=== PATIENT | female | born 1945 | race Caucasian/White ===

== ENCOUNTER 2023-10-17 11:11 | Outpatient (RCR) | payer MEDICARE, BC, SELFPAY ==
[2023-10-17 10:54] LABS: % Basophils 0.4 % (0-2); % Eosinophils 0.3 % (0-6); % Immature Granulocytes 1.5 % (0-0.5); % Lymphocytes 5.1 % (20.5-51.1); % Monocytes 6.5 % (1.7-9.3); % Neutrophils 86.2 % (42.2-75.2); Absolute Basophils 0.1 10^3/uL (0-0.2); Absolute Eosinophils 0.1 10^3/uL (0-0.7); Absolute Immature Granulocytes 0.2 10^3/uL (0-0.05); Absolute Lymphocytes 0.7 10^3/uL (1.2-3.4); Absolute Monocytes 0.9 10^3/uL (0.1-0.6); Absolute Neutrophils 12.4 10^3/uL (1.4-6.5); Hematocrit 27.4 % (37.0-47.0); Hemoglobin 9.2 g/dL (12.0-16.0); Mean Corp Hgb Conc. 33.6 g/dL (33.0-37.0); Mean Corpuscular Hgb 37.1 pg (27.0-31.0); Mean Corpuscular Volume 110.5 fL (81.0-99.0); Mean Platelet Volume 11.2 fL (7.4-10.4); Nucleated Red Blood Cells % 0 %; Platelet Count 53 10^3/uL (130-400); Red Blood Cell Count 2.48 10^6/uL (4.20-5.40); Red Cell Dist. Width 22.2 % (11.5-14.5); White Blood Cell Count 14.4 10^3/uL (4.8-10.8)
[2023-10-17 11:17] LABS: ALT (SGPT) 34 U/L (0-35); AST (SGOT) 31 U/L (14-36); Alkaline Phosphatase 82 U/L (38-126); Blood Urea Nitrogen 10 mg/dl (7-17); Calcium 8.5 mg/dl (8.4-10.2); Carbon Dioxide 27 mmol/L (22-30); Chloride 101 mmol/L (98-107); Glucose 92 mg/dl (70-99); Iron 158 ug/dl (37-170); Sodium 133 mmol/L (135-145); Total Bilirubin 0.8 mg/dl (0.2-1.3); Total Protein 5.8 g/dl (6.3-8.2); eGFR > 60.00
[2023-10-17 11:26] LABS: Percent Saturation 57 % (20-50); Total Iron Binding Capacity 277 ug/dl (265-497)
== END 2023-10-30 23:59 | disposition home or self-care (01) ==
LOC: OID 11:11
PROVIDERS: ATTENDING PHYSICIAN Internal Medicine Hematology & Oncology; FAMILY PHYSICIAN Family Medicine
DX: D63.0 Anemia in neoplastic disease (principal); C34.91 Malignant neoplasm of unspecified part of right bronchus or lung; C79.51 Secondary malignant neoplasm of bone; R91.1 Solitary pulmonary nodule; C50.511 Malignant neoplasm of lower-outer quadrant of right female breast; R16.1 Splenomegaly, not elsewhere classified; E78.00 Pure hypercholesterolemia, unspecified
CPT/HCPCS: 80053; 82728; 83540; 83550; 85025

== ENCOUNTER 2024-02-25 14:15 | Outpatient (RCR) | payer MEDICARE, BC, SELFPAY | END 2024-02-25 23:59 | disposition home or self-care (01) | LOC: RPT 14:15 | PROVIDERS: ATTENDING PHYSICIAN Internal Medicine Hematology & Oncology; FAMILY PHYSICIAN Family Medicine | DX: M54.50 Low back pain, unspecified (principal); C34.91 Malignant neoplasm of unspecified part of right bronchus or lung; C79.51 Secondary malignant neoplasm of bone; R93.7 Abnormal findings on diagnostic imaging of other parts of musculoskeletal system; C50.911 Malignant neoplasm of unspecified site of right female breast; R53.0 Neoplastic (malignant) related fatigue; R26.81 Unsteadiness on feet; Z73.6 Limitation of activities due to disability | CPT/HCPCS: 97110; 97112; 97162; 97530 ==

== ENCOUNTER 2024-03-29 09:53 | Outpatient (RCR) | payer MEDICARE, BC, SELFPAY | END 2024-03-29 23:59 | disposition home or self-care (01) | LOC: RPT 09:53 | PROVIDERS: ATTENDING PHYSICIAN Internal Medicine Hematology & Oncology; FAMILY PHYSICIAN Family Medicine | DX: M54.50 Low back pain, unspecified (principal); C34.91 Malignant neoplasm of unspecified part of right bronchus or lung; C79.51 Secondary malignant neoplasm of bone; R93.7 Abnormal findings on diagnostic imaging of other parts of musculoskeletal system; C50.911 Malignant neoplasm of unspecified site of right female breast; R53.0 Neoplastic (malignant) related fatigue; R26.81 Unsteadiness on feet; Z73.6 Limitation of activities due to disability | CPT/HCPCS: 97110; 97112; 97530 ==

== ENCOUNTER → 2024-04-26 08:59 | Outpatient (REF) | payer MEDICARE, BC, SELFPAY | LOC: RAD 08:59 | PROVIDERS: ATTENDING PHYSICIAN Internal Medicine Critical Care Medicine; FAMILY PHYSICIAN Family Medicine | DX: C34.90 Malignant neoplasm of unspecified part of unspecified bronchus or lung (principal); R93.89 Abnormal findings on diagnostic imaging of other specified body structures | CPT/HCPCS: 71250 ==

== ENCOUNTER 2024-04-30 09:57 | Outpatient (RCR) | payer MEDICARE, BC, SELFPAY | END 2024-04-30 23:59 | disposition home or self-care (01) | LOC: RPT 09:57 | PROVIDERS: ATTENDING PHYSICIAN Internal Medicine Hematology & Oncology; FAMILY PHYSICIAN Family Medicine | DX: M54.50 Low back pain, unspecified (principal); C34.91 Malignant neoplasm of unspecified part of right bronchus or lung; C79.51 Secondary malignant neoplasm of bone; R93.7 Abnormal findings on diagnostic imaging of other parts of musculoskeletal system; C50.911 Malignant neoplasm of unspecified site of right female breast; R53.0 Neoplastic (malignant) related fatigue; R26.81 Unsteadiness on feet; Z73.6 Limitation of activities due to disability | CPT/HCPCS: 97110; 97112; 97530 ==

== ENCOUNTER 2024-05-24 06:38 | Day surgery (SDC) | payer MEDICARE, BC, SELFPAY ==
[2024-05-14 12:22] VITALS: BMI 27.2
--- NOTE | 2024-05-20 10:50 | PTCARENOTE ---
Patients 05/14 [id number]- emailed to Yolanda Villanueva @ Dr. Martínez ackerman
[2024-05-24] VITALS (9 sets, daily range): BP systolic 113–158; BP diastolic 41–80; BMI 25.2
== END 2024-05-24 15:20 | disposition home or self-care (01) ==
LOC: SDS 06:38
PROVIDERS: ATTENDING PHYSICIAN Internal Medicine Critical Care Medicine
DX: C34.11 Malignant neoplasm of upper lobe, right bronchus or lung (principal); C77.1 Secondary and unspecified malignant neoplasm of intrathoracic lymph nodes; J84.10 Pulmonary fibrosis, unspecified; I71.20 Thoracic aortic aneurysm, without rupture, unspecified; Z87.891 Personal history of nicotine dependence
CPT/HCPCS: 31629; 31628; 31624; 31623; 31627; 31654; 88173; 88305; 71045; 76000; 87015; 87070; 87102; 87116; 87205; 88112; 88333; 88334; 88341; 88342; 94640; C1887

== ENCOUNTER → 2024-06-02 15:07 | Outpatient (REF) | payer MEDICARE, BC, SELFPAY | LOC: RAD 15:07 | PROVIDERS: ATTENDING PHYSICIAN Internal Medicine Hematology & Oncology; FAMILY PHYSICIAN Family Medicine | DX: C50.511 Malignant neoplasm of lower-outer quadrant of right female breast (principal); R93.7 Abnormal findings on diagnostic imaging of other parts of musculoskeletal system; R91.1 Solitary pulmonary nodule; C79.51 Secondary malignant neoplasm of bone; C34.91 Malignant neoplasm of unspecified part of right bronchus or lung; D63.0 Anemia in neoplastic disease; D64.9 Anemia, unspecified; E80.7 Disorder of bilirubin metabolism, unspecified; R16.1 Splenomegaly, not elsewhere classified; D64.81 Anemia due to antineoplastic chemotherapy; D69.6 Thrombocytopenia, unspecified | CPT/HCPCS: 71101; 73502 ==

== ENCOUNTER 2024-06-07 10:05 | Outpatient (RCR) | payer MEDICARE, BC, SELFPAY | END 2024-06-07 23:59 | disposition home or self-care (01) | LOC: RPT 10:05 | PROVIDERS: ATTENDING PHYSICIAN Internal Medicine Hematology & Oncology; FAMILY PHYSICIAN Family Medicine | DX: M54.50 Low back pain, unspecified (principal); C34.91 Malignant neoplasm of unspecified part of right bronchus or lung; C79.51 Secondary malignant neoplasm of bone; C50.911 Malignant neoplasm of unspecified site of right female breast; R93.7 Abnormal findings on diagnostic imaging of other parts of musculoskeletal system; R53.0 Neoplastic (malignant) related fatigue; R26.81 Unsteadiness on feet; Z73.6 Limitation of activities due to disability; M62.81 Muscle weakness (generalized); R26.2 Difficulty in walking, not elsewhere classified | CPT/HCPCS: 97112; 97116; 97530 ==

== ENCOUNTER → 2024-07-22 13:30 | Outpatient (REF) | payer MEDICARE, BC, SELFPAY | LOC: RAD 13:30 | PROVIDERS: ATTENDING PHYSICIAN Surgery Vascular Surgery; FAMILY PHYSICIAN Family Medicine | DX: I73.9 Peripheral vascular disease, unspecified (principal) | CPT/HCPCS: 93922; 93925 ==

== ENCOUNTER → 2024-08-13 16:45 | Outpatient (REF) | payer MEDICARE, BC, SELFPAY | LOC: MRI 16:45 | PROVIDERS: ATTENDING PHYSICIAN Internal Medicine Hematology & Oncology; FAMILY PHYSICIAN Family Medicine | DX: C50.511 Malignant neoplasm of lower-outer quadrant of right female breast (principal); R93.7 Abnormal findings on diagnostic imaging of other parts of musculoskeletal system; R91.1 Solitary pulmonary nodule; C79.51 Secondary malignant neoplasm of bone; C34.91 Malignant neoplasm of unspecified part of right bronchus or lung; D63.0 Anemia in neoplastic disease; D64.9 Anemia, unspecified; E80.7 Disorder of bilirubin metabolism, unspecified; R16.1 Splenomegaly, not elsewhere classified; D64.81 Anemia due to antineoplastic chemotherapy; D69.6 Thrombocytopenia, unspecified | CPT/HCPCS: 70553; A9575 ==

== ENCOUNTER → 2024-08-24 10:41 | Outpatient (REF) | payer MEDICARE, BC, SELFPAY | LOC: RCS 10:41 | PROVIDERS: ATTENDING PHYSICIAN Nurse Practitioner; FAMILY PHYSICIAN Family Medicine | DX: C79.51 Secondary malignant neoplasm of bone (principal); C79.52 Secondary malignant neoplasm of bone marrow | CPT/HCPCS: 93005 ==

== ENCOUNTER → 2024-08-24 15:06 | Outpatient (REF) | payer MEDICARE, BC, SELFPAY ==
[2024-08-24 09:57] LABS: ALT (SGPT) 27 U/L (0-35); AST (SGOT) 16 U/L (14-36); Albumin 3.8 g/dl (3.5-5.0); Alkaline Phosphatase 69 U/L (38-126); Blood Urea Nitrogen 19 mg/dl (7-17); Calcium 8.6 mg/dl (8.4-10.2); Carbon Dioxide 27 mmol/L (22-30); Chloride 100 mmol/L (98-107); Glucose 75 mg/dl (70-99); Sodium 137 mmol/L (135-145); Total Bilirubin 0.7 mg/dl (0.2-1.3); Total Protein 5.8 g/dl (6.3-8.2); eGFR > 60.00
[2024-08-24 10:13] LABS: Potassium 3.4 mmol/L (3.5-5.1)
== END ==
LOC: OIDL 15:06
PROVIDERS: ATTENDING PHYSICIAN Internal Medicine Hematology & Oncology
DX: C50.511 Malignant neoplasm of lower-outer quadrant of right female breast (principal)
CPT/HCPCS: 80053

== ENCOUNTER → 2024-09-16 11:48 | Outpatient (REF) | payer MEDICARE, BC, SELFPAY ==
[2024-09-16 12:09] LABS: % Basophils 0.1 % (0-2); % Eosinophils 0.9 % (0-6); % Immature Granulocytes 0.3 % (0-0.5); % Lymphocytes 8.2 % (20.5-51.1); % Monocytes 5.3 % (1.7-9.3); % Neutrophils 85.2 % (42.2-75.2); Absolute Eosinophils 0.1 10^3/uL (0-0.7); Absolute Lymphocytes 0.8 10^3/uL (1.2-3.4); Absolute Monocytes 0.5 10^3/uL (0.1-0.6); Absolute Neutrophils 8.4 10^3/uL (1.4-6.5); Hematocrit 34.6 % (37.0-47.0); Mean Corp Hgb Conc. 34.7 g/dL (33.0-37.0); Mean Corpuscular Hgb 34.5 pg (27.0-31.0); Mean Corpuscular Volume 99.4 fL (81.0-99.0); Platelet Count 107 10^3/uL (130-400); Red Blood Cell Count 3.48 10^6/uL (4.20-5.40); Red Cell Dist. Width 12.8 % (11.5-14.5); White Blood Cell Count 9.8 10^3/uL (4.8-10.8)
== END ==
LOC: OIDL 11:48
PROVIDERS: ATTENDING PHYSICIAN Internal Medicine Hematology & Oncology; FAMILY PHYSICIAN Family Medicine
DX: C50.511 Malignant neoplasm of lower-outer quadrant of right female breast (principal); R93.7 Abnormal findings on diagnostic imaging of other parts of musculoskeletal system; R91.1 Solitary pulmonary nodule; C79.51 Secondary malignant neoplasm of bone
CPT/HCPCS: 36415; 85025

== ENCOUNTER → 2024-09-17 16:26 | Outpatient (REF) | payer MEDICARE, BC, SELFPAY ==
[2024-09-17 13:03] LABS: ALT (SGPT) 28 U/L (0-35); AST (SGOT) 27 U/L (14-36); Albumin 4.1 g/dl (3.5-5.0); Alkaline Phosphatase 55 U/L (38-126); Blood Urea Nitrogen 18 mg/dl (7-17); Calcium 8.9 mg/dl (8.4-10.2); Carbon Dioxide 25 mmol/L (22-30); Chloride 94 mmol/L (98-107); Creatine Phosphokinase 21 U/L (30-135); Glucose 81 mg/dl (70-99); Iron 184 ug/dl (37-170); Sodium 130 mmol/L (135-145); Total Bilirubin 1.3 mg/dl (0.2-1.3); Total Protein 6.3 g/dl (6.3-8.2); eGFR > 60.00
[2024-09-17 13:12] LABS: Percent Saturation 60 % (20-50); Total Iron Binding Capacity 303 ug/dl (265-497)
== END ==
LOC: OIDL 16:26
PROVIDERS: ATTENDING PHYSICIAN Internal Medicine Hematology & Oncology
DX: C50.511 Malignant neoplasm of lower-outer quadrant of right female breast (principal); R93.7 Abnormal findings on diagnostic imaging of other parts of musculoskeletal system; R91.1 Solitary pulmonary nodule
CPT/HCPCS: 80053; 82550; 82728; 83540; 83550

== ENCOUNTER → 2024-11-26 10:31 | Outpatient (REF) | payer MEDICARE, BC, SELFPAY ==
[2024-11-26 10:35] LABS: % Basophils 0.5 % (0-2); % Eosinophils 1.8 % (0-6); % Immature Granulocytes 0.2 % (0-0.5); % Lymphocytes 8.4 % (20.5-51.1); % Monocytes 5.3 % (1.7-9.3); % Neutrophils 83.8 % (42.2-75.2); Absolute Eosinophils 0.1 10^3/uL (0-0.7); Absolute Lymphocytes 0.5 10^3/uL (1.2-3.4); Absolute Monocytes 0.3 10^3/uL (0.1-0.6); Absolute Neutrophils 4.6 10^3/uL (1.4-6.5); Hemoglobin 10.7 g/dL (12.0-16.0); Mean Corp Hgb Conc. 35.7 g/dL (33.0-37.0); Mean Corpuscular Hgb 37.4 pg (27.0-31.0); Mean Corpuscular Volume 104.9 fL (81.0-99.0); Mean Platelet Volume 9.8 fL (7.4-10.4); Platelet Count 95 10^3/uL (130-400); Red Blood Cell Count 2.86 10^6/uL (4.20-5.40); Red Cell Dist. Width 12.8 % (11.5-14.5); White Blood Cell Count 5.5 10^3/uL (4.8-10.8)
[2024-11-26 11:11] LABS: Creatine Phosphokinase 22 U/L (30-135)
== END ==
LOC: OIDL 10:31
PROVIDERS: ATTENDING PHYSICIAN Internal Medicine Hematology & Oncology
DX: C50.511 Malignant neoplasm of lower-outer quadrant of right female breast (principal); R93.7 Abnormal findings on diagnostic imaging of other parts of musculoskeletal system; C79.51 Secondary malignant neoplasm of bone; R91.1 Solitary pulmonary nodule; C34.91 Malignant neoplasm of unspecified part of right bronchus or lung; D63.0 Anemia in neoplastic disease; D64.9 Anemia, unspecified; E80.7 Disorder of bilirubin metabolism, unspecified; R16.1 Splenomegaly, not elsewhere classified; D64.81 Anemia due to antineoplastic chemotherapy; D69.6 Thrombocytopenia, unspecified
CPT/HCPCS: 82550; 85025

== ENCOUNTER → 2024-12-22 11:35 | Outpatient (REF) | payer MEDICARE, BC, SELFPAY ==
[2024-12-22 11:43] LABS: % Basophils 0.3 % (0-2); % Eosinophils 0.7 % (0-6); % Immature Granulocytes 0.1 % (0-0.5); % Lymphocytes 6.1 % (20.5-51.1); % Monocytes 6.3 % (1.7-9.3); % Neutrophils 86.5 % (42.2-75.2); Absolute Eosinophils 0.1 10^3/uL (0-0.7); Absolute Lymphocytes 0.4 10^3/uL (1.2-3.4); Absolute Monocytes 0.4 10^3/uL (0.1-0.6); Hematocrit 30.7 % (37.0-47.0); Hemoglobin 10.3 g/dL (12.0-16.0); Mean Corp Hgb Conc. 33.6 g/dL (33.0-37.0); Mean Corpuscular Hgb 34.6 pg (27.0-31.0); Mean Platelet Volume 9.2 fL (7.4-10.4); Platelet Count 81 10^3/uL (130-400); Red Blood Cell Count 2.98 10^6/uL (4.20-5.40); Red Cell Dist. Width 12.8 % (11.5-14.5); White Blood Cell Count 6.9 10^3/uL (4.8-10.8)
== END ==
LOC: OIDL 11:35
PROVIDERS: ATTENDING PHYSICIAN Internal Medicine Hematology & Oncology
DX: C50.511 Malignant neoplasm of lower-outer quadrant of right female breast (principal); R93.7 Abnormal findings on diagnostic imaging of other parts of musculoskeletal system; C79.51 Secondary malignant neoplasm of bone; R91.1 Solitary pulmonary nodule; C34.91 Malignant neoplasm of unspecified part of right bronchus or lung; D63.0 Anemia in neoplastic disease; D64.9 Anemia, unspecified; E80.7 Disorder of bilirubin metabolism, unspecified; R16.1 Splenomegaly, not elsewhere classified; D64.81 Anemia due to antineoplastic chemotherapy; D69.6 Thrombocytopenia, unspecified
CPT/HCPCS: 85025

== ENCOUNTER → 2025-02-10 10:03 | Outpatient (REF) | payer MEDICARE, BC, SELFPAY ==
[2025-02-10 11:12] LABS: Creatine Phosphokinase 30 U/L (30-135)
== END ==
LOC: OIDL 10:03
PROVIDERS: ATTENDING PHYSICIAN Internal Medicine Hematology & Oncology
DX: C50.511 Malignant neoplasm of lower-outer quadrant of right female breast (principal); R93.7 Abnormal findings on diagnostic imaging of other parts of musculoskeletal system; C79.51 Secondary malignant neoplasm of bone; R91.1 Solitary pulmonary nodule; C34.91 Malignant neoplasm of unspecified part of right bronchus or lung; D63.0 Anemia in neoplastic disease; D64.9 Anemia, unspecified; E80.7 Disorder of bilirubin metabolism, unspecified; R16.1 Splenomegaly, not elsewhere classified; D64.81 Anemia due to antineoplastic chemotherapy; D69.6 Thrombocytopenia, unspecified
CPT/HCPCS: 82550

== ENCOUNTER → 2025-03-03 14:45 | Outpatient (REF) | payer MEDICARE, BC, SELFPAY ==
[2025-03-03 10:52] LABS: Iron 111 ug/dl (37-170)
[2025-03-03 11:02] LABS: Total Iron Binding Capacity 270 ug/dl (265-497)
[2025-03-03 12:50] LABS: Ferritin 281.0 ng/ml (11.1-264.0)
== END ==
LOC: OIDL 14:45
PROVIDERS: ATTENDING PHYSICIAN Internal Medicine Hematology & Oncology
DX: C50.511 Malignant neoplasm of lower-outer quadrant of right female breast (principal); R93.7 Abnormal findings on diagnostic imaging of other parts of musculoskeletal system; C79.51 Secondary malignant neoplasm of bone; R91.1 Solitary pulmonary nodule; C34.91 Malignant neoplasm of unspecified part of right bronchus or lung; D63.0 Anemia in neoplastic disease; D64.9 Anemia, unspecified; E80.7 Disorder of bilirubin metabolism, unspecified; R16.1 Splenomegaly, not elsewhere classified; D64.81 Anemia due to antineoplastic chemotherapy; D69.6 Thrombocytopenia, unspecified
CPT/HCPCS: 82550; 82728; 83540; 83550

== ENCOUNTER 2025-03-24 11:12 | Outpatient (RCR) | payer MEDICARE, BC, SELFPAY | END 2025-03-31 23:59 | disposition home or self-care (01) | LOC: OID 11:12 | PROVIDERS: ATTENDING PHYSICIAN Internal Medicine Hematology & Oncology | DX: C50.511 Malignant neoplasm of lower-outer quadrant of right female breast (principal); C79.51 Secondary malignant neoplasm of bone; C34.91 Malignant neoplasm of unspecified part of right bronchus or lung; D63.0 Anemia in neoplastic disease; R16.1 Splenomegaly, not elsewhere classified; D64.81 Anemia due to antineoplastic chemotherapy; D69.6 Thrombocytopenia, unspecified; Z87.891 Personal history of nicotine dependence | CPT/HCPCS: 82550 ==

== ENCOUNTER → 2025-06-08 10:03 | Outpatient (REF) | payer MEDICARE, BC, SELFPAY ==
[2025-06-08 10:09] LABS: Glucose 93 mg/dl (70-99)
== END ==
LOC: PET 10:03
PROVIDERS: ATTENDING PHYSICIAN Internal Medicine Hematology & Oncology
DX: C50.511 Malignant neoplasm of lower-outer quadrant of right female breast (principal); R93.7 Abnormal findings on diagnostic imaging of other parts of musculoskeletal system; R91.1 Solitary pulmonary nodule; D63.0 Anemia in neoplastic disease; D64.9 Anemia, unspecified; E80.7 Disorder of bilirubin metabolism, unspecified; R16.1 Splenomegaly, not elsewhere classified; D64.81 Anemia due to antineoplastic chemotherapy; D69.6 Thrombocytopenia, unspecified
CPT/HCPCS: 36415; 82947

== ENCOUNTER → 2025-07-06 10:53 | Outpatient (REF) | payer MEDICARE, BC, SELFPAY ==
[2025-07-06 12:27] LABS: Hematocrit 29.0 % (37.0-47.0); Hemoglobin 9.6 g/dL (12.0-16.0); Mean Corp Hgb Conc. 33.1 g/dL (33.0-37.0); Mean Corpuscular Volume 104.7 fL (81.0-99.0); Nucleated Red Blood Cells % 0 %; Platelet Count 91 10^3/uL (130-400); Red Cell Dist. Width 15.0 % (11.5-14.5)
[2025-07-06 16:34] LABS: ALT (SGPT) < 10 U/L (0-35); AST (SGOT) 14 U/L (14-36); Albumin 3.9 g/dl (3.5-5.0); Alkaline Phosphatase 56 U/L (38-126); Blood Urea Nitrogen 11 mg/dl (7-17); Calcium 9.1 mg/dl (8.4-10.2); Carbon Dioxide 27 mmol/L (22-30); Chloride 102 mmol/L (98-107); Glucose 99 mg/dl (70-99); Potassium 3.8 mmol/L (3.5-5.1); Sodium 136 mmol/L (135-145); Total Protein 6.4 g/dl (6.3-8.2); eGFR > 60.00
== END ==
LOC: REG 10:53
PROVIDERS: ATTENDING PHYSICIAN Internal Medicine Hematology & Oncology; FAMILY PHYSICIAN Family Medicine
DX: C50.511 Malignant neoplasm of lower-outer quadrant of right female breast (principal); R93.7 Abnormal findings on diagnostic imaging of other parts of musculoskeletal system; C79.51 Secondary malignant neoplasm of bone; R91.1 Solitary pulmonary nodule; C34.91 Malignant neoplasm of unspecified part of right bronchus or lung; D63.0 Anemia in neoplastic disease; D64.9 Anemia, unspecified; E80.7 Disorder of bilirubin metabolism, unspecified; R16.1 Splenomegaly, not elsewhere classified; D64.81 Anemia due to antineoplastic chemotherapy; D69.6 Thrombocytopenia, unspecified
CPT/HCPCS: 36415; 80053; 85025

== ENCOUNTER → 2025-08-08 12:51 | Outpatient (REF) | payer MEDICARE, BC, SELFPAY | LOC: RAD 12:51 | PROVIDERS: ATTENDING PHYSICIAN Surgery Vascular Surgery; FAMILY PHYSICIAN Family Medicine | DX: I73.9 Peripheral vascular disease, unspecified (principal) | CPT/HCPCS: 93922 ==

== ENCOUNTER → 2025-08-10 13:05 | Outpatient (REF) | payer MEDICARE, BC, SELFPAY ==
[2025-08-10 14:16] LABS: Hematocrit 27.9 % (37.0-47.0); Hemoglobin 10.3 g/dL (12.0-16.0); Mean Corp Hgb Conc. 36.9 g/dL (33.0-37.0); Mean Corpuscular Volume 110.3 fL (81.0-99.0); Nucleated Red Blood Cells % 0 %; Platelet Count 106 10^3/uL (130-400); Red Cell Dist. Width 16.3 % (11.5-14.5)
[2025-08-10 16:47] LABS: ALT (SGPT) < 10 U/L (0-35); AST (SGOT) 16 U/L (14-36); Albumin 3.7 g/dl (3.5-5.0); Alkaline Phosphatase 50 U/L (38-126); Blood Urea Nitrogen 10 mg/dl (7-17); Calcium 9.1 mg/dl (8.4-10.2); Carbon Dioxide 27 mmol/L (22-30); Chloride 99 mmol/L (98-107); Glucose 104 mg/dl (70-99); Potassium 3.7 mmol/L (3.5-5.1); Sodium 132 mmol/L (135-145); Total Protein 6.0 g/dl (6.3-8.2); eGFR > 60.00
== END ==
LOC: REG 13:05
PROVIDERS: ATTENDING PHYSICIAN Internal Medicine Hematology & Oncology; FAMILY PHYSICIAN Family Medicine
DX: C50.511 Malignant neoplasm of lower-outer quadrant of right female breast (principal); R93.7 Abnormal findings on diagnostic imaging of other parts of musculoskeletal system; C79.51 Secondary malignant neoplasm of bone; R91.1 Solitary pulmonary nodule; C34.91 Malignant neoplasm of unspecified part of right bronchus or lung; D63.0 Anemia in neoplastic disease; D64.9 Anemia, unspecified; E80.7 Disorder of bilirubin metabolism, unspecified; R16.1 Splenomegaly, not elsewhere classified; D64.81 Anemia due to antineoplastic chemotherapy; D69.6 Thrombocytopenia, unspecified
CPT/HCPCS: 36415; 80053; 85025